=== PATIENT | female | born 1990 | race Caucasian/White ===

== ENCOUNTER 2018-07-18 15:46 | Emergency (ER) | payer SELFPAY ==
[~2018-07-18] VITALS: Ht 157.5 cm; Wt 62.0 kg
[2018-07-18 15:50] VITALS: Ht 157.5 cm; Wt 62.0 kg
[2018-07-18] MEDS ORDERED: ACETAMINOPHEN 325 MG TAB PO STA (17:38)
[2018-07-18] MEDS ORDERED: SOD CHLORIDE 0.9% 1,000 ML IV STA (17:38)
[2018-07-18] MEDS ORDERED: ONDANSETRON 4 MG INJ IV STA ×2 (17:38→19:30)
--- NOTE | 2018-07-18 18:16 | ERD ---
ER Documentation Chief Complaint Chief Complaint Complains of vomiting and 8 weeks HPI 28-year-old female coming in today with Chief Complaint: Vomiting History of Present Illness: Patient being brought in today with complaint of vomiting while . Patient reports being approximately 8 weeks . Partner accompanies patient to ER visit. Associated symptoms include lower abdominal cramping and weakness. Patient denies vaginal bleeding. Denies any other associated symptoms. G1,P0,A0 Review of systems: All systems were reviewed and are negative except for what is indicated in the history of present illness. Past Medical History: Negative for hypertension, diabetes or other medical problems Social History: Patient denies tobacco, alcohol, elicit drug use Medications: None Allergies: NKDA Social Concerns: Denies ROS All systems reviewed and are negative except as per history of present illness. Medications Home Meds Active Scripts Nitrofurantoin Monohyd Macrocr* (Macrobid*) 100 Mg Capsr, 100 MG PO BID for urine infection for 7 Days, #14 CAP Prov:KARLA BUSTILLOS NP 07/18/18 Pyridoxine Hcl* (Pyridoxine Hcl*) 25 Mg Tablet, 25 MG PO DAILY for nausea prevention, #30 TAB 1 Refill Prov:KARLA BUSTILLOS NP 07/18/18 Ondansetron (Ondansetron Odt) 4 Mg Tab.rapdis, 4 MG PO Q8 PRN for NAUSEA AND/OR VOMITING, #15 TAB Prov:KARLA BUSTILLOS NP 07/18/18 Allergies Allergies: Coded Allergies: No Known Allergy (Unverified , 07/18/18) PMhx/Soc Medical and Surgical Hx: pt denies Medical Hx, pt denies Surgical Hx Hx Alcohol Use: No Hx Substance Use: No Hx Tobacco Use: No Smoking Status: Never smoker Physical Exam Vitals Vital Signs Date Temp Pulse Resp B/P (MAP) Pulse Ox O2 O2 Flow FiO2 Time Delivery Rate 07/18/18 98.3 79 18 103/65 100 Room Air 20:05 (78) 07/18/18 97.9 97 20 130/86 98 15:50 (101) Physical Exam Const: No acute distress Head: Atraumatic Eyes: Normal Conjunctiva ENT: Normal External Ears, Nose and Mouth. no dry mucous membranes. Neck: Full range of motion. No meningismus. Resp: Clear to auscultation bilaterally Cardio: Regular rate and rhythm, no murmurs Abd: Soft, non distended. Normal bowel sounds. Tenderness to suprapubic area. Skin: No petechiae or rashes Back: No midline or flank tenderness Ext: No cyanosis, or edema Neur: Awake and alert Psych: Normal Mood and Affect Result Diagram: 07/18/18 2182 Results 24 hrs Laboratory Tests Test 07/18/18 17:54 White Blood Count 10.9 10^3/ul Red Blood Count 4.67 10^6/ul Hemoglobin 13.9 g/dl Hematocrit 41.1 % Mean Corpuscular Volume 88.0 fl Mean Corpuscular Hemoglobin 29.8 pg Mean Corpuscular Hemoglobin Concent 33.8 g/dl Red Cell Distribution Width 13.1 % Platelet Count 367 10^3/UL Mean Platelet Volume 10.1 fl Immature Granulocytes % 0.600 % Neutrophils % 63.0 % Lymphocytes % 24.5 % Monocytes % 6.8 % Eosinophils % 4.7 % Basophils % 0.4 % Nucleated Red Blood Cells % 0.0 /100WBC Immature Granulocytes # 0.060 10^3/ul Neutrophils # 6.9 10^3/ul Lymphocytes # 2.7 10^3/ul Monocytes # 0.7 10^3/ul Eosinophils # 0.5 10^3/ul Basophils # 0.0 10^3/ul Nucleated Red Blood Cells # 0.0 10^3/ul Urine Color YELLOW Urine Clarity SLIGHTLY CLOUDY Urine pH 6.0 Urine Specific [place] 1.027 Urine Ketones TRACE mg/dL Urine Nitrite NEGATIVE mg/dL Urine Bilirubin NEGATIVE mg/dL Urine Urobilinogen 1+ mg/dL Urine Leukocyte Esterase 1+ Liane/ul Urine Microscopic RBC 2 /HPF Urine Microscopic WBC 8 /HPF Urine Squamous Epithelial Cells FEW /HPF Urine Bacteria FEW /HPF Urine Mucus MODERATE /HPF Urine Hemoglobin NEGATIVE mg/dL Urine Glucose NEGATIVE mg/dL Urine Total Protein NEGATIVE mg/dl Beta HCG, Quantitative 311748.0 mIU/ml Current Medications Medications Dose Sig/Gurpreet Start Time Status Last (Trade) Ordered Route PRN Stop Time Admin Dose Reason Admin Sodium 1,000 ml @ Q1H STAT 07/18/18 DC 07/18/18 Chloride 1,000 mls/hr IV 17:38 18:00 07/18/18 18:37 650 mg ONCE STAT 07/18/18 DC 07/18/18 Acetaminophen PO 17:38 18:00 (Tylenol 07/18/18 17:41 Tab) Ondansetron 4 mg ONCE STAT 07/18/18 DC 07/18/18 HCl (Zofran IV 17:38 18:00 Inj) 07/18/18 17:41 Ondansetron 4 mg ONCE STAT 07/18/18 DC 07/18/18 HCl (Zofran IV 19:30 19:40 Inj) 07/18/18 19:32 Procedures/MDM ED course includes a thorough examination and history. ED course includes medication; acetaminophen for pain, IV fluids for hydration, Zofran for nausea. ED course includes labs; CBC, urinalysis, hCG quantitative. ED course includes imaging; ultrasound transvaginal and abdominal due to patient complaint of abdominal pain. Otherwise healthy patient presenting with constellation of symptoms likely representing hyperemesis gravidarum and UTI as characterized by history, physical exam findings, imaging/lab findings. Urinalysis with positive WBCs leukocyte esterase and bacteria. HCG quantitative [id number]. Ultrasound imp ression showing: Single live intrauterine with an estimated gestational age of 8 weeks and 3 days, based on ultrasound measurements. Focal area of subchorionic hemorrhage. Small simple cyst in the left ovary. Close follow-up is recommended. Patient reassessment at 1930: No acute distress. Vomiting no longer present, nausea still present. Will order one-time dose of IV Zofran and reassessment before discharge. Patient reassessment at 1999: Nausea no longer present. No acute distress. Discharge instructions given with pediatric registered nurse services via iPad. All questions answered. Patient reporting dysuria, will treat with Macrobid and order culture due to symptomatic. Patient verbalizes understanding of repeat ultrasound and close follow-up for the concerns on ultrasound. Patient states she does not have a [employer] yet so referrals will be given. No respiratory distress, otherwise relatively well appearing and nontoxic. Patient educated on diagnoses, prescriptions for Zofran and Pyridoxine for nausea and Macrobid for UTI, follow-up care, return precautions. Strict return precautions given for worsening condition; questions answered discharge. Disposition for discharge with followup in 2-3 days with PCP/clinic or [employer] for reevaluation of symptoms and further care.. Departure Diagnosis: Primary Impression: Vomiting Additional Impression: Subchorionic hemorrhage in first trimester Fetus number: single or unspecified fetus Qualified Codes: O41.8X10 - Other specified disorders of amniotic fluid and membranes, first trimester, not applicable or unspecified; O46.8X1 - Other antepartum hemorrhage, first trimester Condition: Stable KARLA BUSTILLOS NP Jul 18, 2018 18:16
[2018-07-18 20:05] VITALS: BP 103/65; PULSE 79; RESP 18
[2018-07-18] MEDS ORDERED: NITR-58 PO (20:21)
[2018-07-18] MEDS ORDERED: PYRI25TA4 PO (20:21)
[2018-07-18] MEDS ORDERED: ONDA4TAB14 PO (20:21)
== END 2018-07-18 20:33 | disposition home or self-care (01) ==
LOC: FTE 15:46
DX: O21.9 Vomiting of pregnancy, unspecified (principal); O46.8X1 Other antepartum hemorrhage, first trimester; O41.8X11 Other specified disorders of amniotic fluid and membranes, first trimester, fetus 1; R10.9 Unspecified abdominal pain; Z3A.08 8 weeks gestation of pregnancy
CPT/HCPCS: 36415; 76801; 81001; 84702; 85025; 86900; 86901; 87086; 96374; 96376; 99285; J2405; J7030